=== PATIENT | male | born 1975 | race Caucasian/White ===

== ENCOUNTER 2017-11-30 21:51 | Emergency (ER) | payer OTHER ==
--- NOTE | 2017-11-30 22:37 | EDM.PDOC ---
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 seen at [facility] after injury, they recommended PT in 2d altho that will be too early trying to wt bear altho unable to wt bear, does not have crutches ibupofen not helping most pain infrapatellar and radiates into lower anterior thigh - Related Data Home Meds: Home Meds Hydrocodone/Acetaminophen [Lorcet 5-325 mg Tablet] 1 each PO Q6H PRN #12 tablet 11/30/17 [Rx] Review of Systems - Review of Systems Review Of Systems: See Below Constitutional: Reports: No Symptoms Eyes: Reports: No Symptoms Ears: Reports: No Symptoms Nose: Reports: No Symptoms Mouth/Throat: Reports: No Symptoms Respiratory: Reports: No Symptoms Cardiovascular: Reports: No Symptoms GI/Abdominal: Reports: No Symptoms Genitourinary: Reports: No Symptoms Musculoskeletal: Reports: Joint Pain Skin: Reports: No Symptoms Neurological: Reports: No Symptoms Psychiatric: Reports: No Symptoms ED EXAM, GENERAL - Physical Exam Exam: See Below Exam Limited By: No Limitations General Appearance: Alert, WD/WN, Mild Distress Eye Exam: Bilateral Eye: Normal Inspection Nose: Normal Inspection, Normal Mucosa, No Blood Throat/Mouth: Normal Inspection, Normal Voice, No Airway Compromise Head: Atraumatic Neck: Normal Inspection, Supple Respiratory/Chest: No Respiratory Distress, Lungs Clear, Normal Breath Sounds, No Accessory Muscle Use Cardiovascular: Regular Rate, Rhythm, No Edema, No Gallop, No Murmur, No Rub GI/Abdominal: Soft, Non-Tender, No Distention Back Exam: Normal Inspection, Full Range of Motion, NT Extremities: Other (R knee with 2+ tender at proximal insertion of LCL, mild swelling around patella, however patella not ballottable, no ecchymosis, 1+ tender of quads muscles above patella 15 cm, less tender further proximal, no taunt or firm muscle) Neurological: Alert, Oriented, CN II-XII Intact, Normal Cognition, No Motor/ Sensory Deficits Psychiatric: Normal Affect, Normal Mood Skin Exam: Warm, Dry, Intact, Normal Color, No Rash Lymphatic: No Adenopathy Departure - Departure Time of Disposition: 22:31 Disposition: Home, Self-Care 01 Condition: Good Clinical Impression: Sprain of lateral collateral ligament of right knee, Contusion of right knee - Discharge Information *PRESCRIPTION DRUG MONITORING PROGRAM REVIEWED*: Not Applicable *COPY OF PRESCRIPTION DRUG MONITORING REPORT IN PATIENT SYEDA: Not Applicable Prescriptions: Hydrocodone/Acetaminophen [Lorcet 5-325 mg Tablet] 1 each PO Q6H PRN #12 tablet PRN Reason: Pain Instructions: Lateral Collateral Knee Ligament Sprain With Phase I Rehab- [facility] Referrals: PCP,None [Primary Care Provider] - Additional Instructions: No weight bearing or work until cleared by ortho. Use crutches when out of bed. Use Rui wrap when out of bed. For pain and inflammation and swelling, take ibuprofen 200 mg 4 tabs and acetaminophen 325 mg 2 tabs 3 times a day. For pain, take hydrocodone with acetaminophen 5/325 mg 1 tab every 6-8 hours as needed. No alcohol. See orthopedics (Dr Barboza) in 2 days. Return to ED if you are feeling worse, your thigh gets firm to the touch or you develop new symptoms. Call your Physician or Return to Emergency Department if: * Your condition worsens in any way. * You develop fever greater than 100.4. * You have vomitting that does not stop with medications. * You have pain that is not controlled with medications.
== END 2017-11-30 22:52 | disposition home or self-care (01) ==
LOC: FB.ED 21:51
DX: S83.421A Sprain of lateral collateral ligament of right knee, initial encounter (principal); Y99.0 Civilian activity done for income or pay; X50.1XXA Overexertion from prolonged static or awkward postures, initial encounter; Y92.61 Building [any] under construction as the place of occurrence of the external cause
CPT/HCPCS: 99282